=== PATIENT | female | born 1960 | race Caucasian/White ===

== ENCOUNTER → 2020-12-27 | Outpatient (CLI) | payer BC | LOC: LAB 11:09 | PROVIDERS: Dermatology | DX: L71.8 Other rosacea (principal); Z79.899 Other long term (current) drug therapy | CPT/HCPCS: 36415; 80061; 82977; 84450; 84460 ==

== ENCOUNTER → 2021-01-17 | Outpatient (CLI) | payer BC | LOC: US 10:14 | DX: K75.81 Nonalcoholic steatohepatitis (NASH) (principal); Z90.49 Acquired absence of other specified parts of digestive tract | CPT/HCPCS: 76705 ==

== ENCOUNTER → 2021-01-31 | Outpatient (CLI) | payer BC | LOC: LAB 10:21 | PROVIDERS: Dermatology | DX: L71.8 Other rosacea (principal); T21.22XA Burn of second degree of abdominal wall, initial encounter; Z79.899 Other long term (current) drug therapy | CPT/HCPCS: 36415; 36591; 80061; 82977; 84450; 84460 ==